=== PATIENT | male | born 1975 | race Caucasian/White ===

== ENCOUNTER 2017-02-08 14:47 | Emergency (ER) | payer BC, OTHER ==
--- NOTE | 2017-02-08 18:57 | UC ---
Víctor Hinojosa Aidan, scribed for Isadora Chandler MD on 02/08/17 at 1602 . Skin Complaint HPI - HPI Summary HPI Summary: 41 y/o male presents to the Urgent Care with a complaint of acute, constant, moderate left ear redness with associated itchiness that began 2 days ago. At 2000 2 days ago, his ear became mildly itchy. Over the course of the next day, it became progressively itchier. He then noticed some oozing discharge and applied hydrocortisone and washed the ear with Neutrogena soap. Associated symptoms include warmth and swelling in the left ear and swollen lymph nodes on the left side. He denies any dental pain. - History of Current Complaint Chief Complaint: UCSkin Time Seen by Provider: 02/08/17 15:41 Stated Complaint: EAR SKIN RASH Hx Obtained From: Patient Onset/Duration: Gradual Onset, Lasting Days, Still Present Skin Exposure Onset/Duration: Days Ago, Worse Since: - onset Timing: Constant Onset Severity: Moderate Current Severity: Moderate Pain Intensity: 0 - no pain mentioned Pain Scale Used: 0-10 Numeric Location: Ear (Left), Other - swelling in left lymph node too Character: Swelling, Pruritus, Redness Aggravating: Other - unknown Alleviating: Other - unknown Associated Signs & Symptoms: Positive: Rash - redness and itchiness on left ear , swelling in left lymph node Related History: Other: - possible exposure to poison dayami - Allergy/Home Medications Allergies/Adverse Reactions: Allergies Allergy/AdvReac Type Severity Reaction Status Date / Time No Known Allergies Allergy Verified 02/08/17 15:23 Review of Systems Constitutional: Negative Skin: Other - redness and itchiness to left ear with associated swelling Eyes: Negative ENT: Other - swollen left lymph node Respiratory: Negative Cardiovascular: Negative Gastrointestinal: Negative Genitourinary: Negative Motor: Negative Neurovascular: Negative Musculoskeletal: Negative Neurological: Negative Psychological: Negative All Other Systems Reviewed And Are Negative: Yes PMH/Surg Hx/FS Hx/Imm Hx - Surgical History Surgical History: Yes Surgery Procedure, Year, and Place: knee - Family History Known Family History: Positive: Hypertension - Social History Occupation: Employed Full-time Lives: Alone Alcohol Use: Occasionally Substance Use Type: None Smoking Status (MU): Never Smoked Tobacco Physical Exam Triage Information Reviewed: Yes Appearance: Well-Nourished Vital Signs: Initial Vital Signs Temp 100.1 F 02/08/17 15:19 Pulse 83 02/08/17 15:19 Resp 18 02/08/17 15:19 BP 130/83 02/08/17 15:19 Pulse Ox 97 02/08/17 15:19 Vital Signs Reviewed: Yes Eye Exam: Normal ENT Exam: Other - pinna is red, swollen, inflamed, irregular area of skin disruption, length 1.5cm and width of 1.3 cm, small amount of clear, yellow crusty drainage Neck exam: Other - Posterior auricular adenopathy and left submandibular Neck: Negative: No Lymphadenopathy - Posterior auricular adenopathy and left submandibular Respiratory Exam: Normal, Other - no dispnea, no tachypnea, normal respiratory rate Respiratory: Positive: Normal breath sounds Cardiovascular Exam: Normal, Other - good general skin color Cardiovascular: Positive: RRR, Brisk Capillary Refill Abdominal Exam: Normal Abdomen Description: Positive: Nontender, No Organomegaly, Soft Bowel Sounds: Positive: Present Musculoskeletal Exam: Normal Musculoskeletal: Positive: Strength Intact Neurological Exam: Normal, Other - normal, nonfocal, grossly intact Neurological: Positive: Alert Psychological Exam: Normal Psychological: Positive: Age Appropriate Behavior Skin Exam: Other - pinna is red, swollen, inflamed, irregular area of skin disruption, length 1.5cm and width of 1.3 cm, small amount of clear, yellow crusty drainage Course/Dx - Course Course Of Treatment: No new problems in CCC. Reviewed coa / d/c instructions. L ear dermatitis, likely allergic origen (consider insect bite?). Complicated by local cellulitis. See avs instructions. Questions answered to the best of my ability. Rx prednisone taper, topical mupirocin. otc antihistamine (d/w pt). - Diagnoses Provider Diagnoses: Allergic dermatitis. Local (ear tragus) cellulitis Discharge - Discharge Plan Condition: Stable Disposition: HOME Prescriptions: Mupirocin 2% OINT* [Bactroban 2 % Oint*] 1 applic TOPICAL BID #1 tube predniSONE TAB* [Deltasone TAB*] 10 mg PO DAILY #11 tab Patient Education Materials: Antihistamine (By mouth), Cellulitis (ED), Dermatitis (ED) Referrals: Ingris Busch, BINGO MANAGER [Primary Care Provider] - Additional Instructions: Avoid direct sun exposure. Avoid astringents. Over the counter antihistamine, per packaging instructions for the next 5 days ( and then as needed for itching). Seek medical attention for worse or new problems. The documentation as recorded by the Víctor laboy Aidan accurately reflects the service I personally performed and the decisions made by me, Isadora Chandler MD.
== END 2017-02-08 16:24 | disposition home or self-care (01) ==
LOC: UCEAST 14:47
DX: L23.9 Allergic contact dermatitis, unspecified cause (principal); H60.12 Cellulitis of left external ear
CPT/HCPCS: 99202; G0463

== ENCOUNTER 2018-06-16 10:18 | Emergency (ER) | payer BC ==
[2018-06-16] MEDS ORDERED: Ketorolac INJ* 60 MG/2 ML VIAL IM ONE (12:43)
[2018-06-16 12:52] VITALS: BP 143/91
--- NOTE | 2018-06-16 13:19 | RAD ---
HISTORY: possible FB under nail bed (distal) COMPARISONS: None VIEWS: 3 , Frontal, lateral, and oblique views of the first digit of the left hand FINDINGS: BONE DENSITY: Normal. BONES: There is no displaced fracture. JOINTS: There is no arthropathy. ALIGNMENT: There is no dislocation. SOFT TISSUES: Unremarkable. OTHER FINDINGS: There is no radiopaque foreign body. IMPRESSION: NO ACUTE OSSEOUS INJURY. IF SYMPTOMS PERSIST, RECOMMEND REPEAT IMAGING.
--- NOTE | 2018-06-16 13:27 | ED ---
Upper Extremity Pain - HPI Summary HPI Summary: [id number] patient here with left thumb nail injury over the weekend. 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 He had acute pain then and continues to have pain. He has some redness and swelling developing along the side of his fingernail which has him concerned about infection. He denies drainage, streaking, fever, chills. He has only taken one dose of ibuprofen last night to help him sleep which it did. Also soaking thumb in salt water. He denies numbness, tingling, weakness. Tetanus? - History of Current Complaint Chief Complaint: UCSkin Stated Complaint: INFECTED NAIL BED Time Seen by Provider: 06/16/18 12:26 Hx Obtained From: Patient - Allergies/Home Medications Allergies/Adverse Reactions: Allergies Allergy/AdvReac Type Severity Reaction Status Date / Time No Known Allergies Allergy Verified 06/16/18 10:45 Home Medications: Home Medications Ibuprofen/Diphenhydramine HCl [Ibuprofen Pm 200-25 mg] 1 cap PO 06/16/18 [ History] PMH/Surg Hx/FS Hx/Imm Hx Previously Healthy: Yes Endocrine/Hematology History: Denies: Autoimmune Disease - Surgical History Surgery Procedure, Year, and Place: knee Infectious Disease History: No Infectious Disease History: Denies: Traveled Outside the [place] in Last 30 Days - Family History Known Family History: Positive: Hypertension - Social History Alcohol Use: Occasionally Substance Use Type: Reports: None Smoking Status (MU): Never Smoked Tobacco Review of Systems Constitutional: Negative Negative: Fever, Chills Positive: no symptoms reported Musculoskeletal: Negative Skin: Other - erythema about affected nail Neurological: Negative Psychological: Normal All Other Systems Reviewed And Are Negative: Yes Physical Exam Triage Information Reviewed: Yes Vital Signs On Initial Exam: Initial Vitals Temp Pulse Resp BP Pulse Ox 97.2 F 73 18 133/93 100 06/16/18 10:41 06/16/18 10:41 06/16/18 10:41 06/16/18 10:41 06/16/18 10:41 Vital Signs Reviewed: Yes Appearance: Positive: Well-Appearing, No Pain Distress, Well-Nourished Skin: Positive: Warm, Skin Color Reflects Adequate Perfusion, Dry - mild erythema about the Lt thumb at junction between nail and nailbed at the end of the nail, centrally located -appears to have pinpoint bruising here but no ervin FB, no pustule - very mild focal edema and no streaking; nail bed completelt intact -no subungual hematoma Head/Face: Positive: Normal Head/Face Inspection Eyes: Positive: EOMI ENT: Positive: Hearing grossly normal Respiratory/Lung Sounds: Positive: Breath Sounds Present Cardiovascular: Positive: Pulses are Symmetrical in both Upper and Lower Extremities Musculoskeletal: Positive: Strength/ROM Intact, Pain @ - Lt thumb TTP Neurological: Positive: Normal, Sensory/Motor Intact, Alert, Oriented to Person Place, Time, CN Intact II-III Psychiatric: Positive: Anxious Diagnostics - Vital Signs Vital Signs Temp Pulse Resp BP Pulse Ox 06/16/18 12:50 97.4 F 61 16 143/91 99 06/16/18 10:41 97.2 F 73 18 133/93 100 - Laboratory Lab Statement: Any lab studies that have been ordered have been reviewed, and results considered in the medical decision making process. Course/Dx - Course Course Of Treatment: XR: no FB - Diagnoses Provider Diagnoses: Injury of left thumb Discharge - Sign-Out/Discharge Documenting (check all that apply): Patient Departure All imaging exams completed and their final reports reviewed: Yes - Discharge Plan Condition: Stable Disposition: HOME Prescriptions: Sulfamethox/Trimethoprim DS* [Bactrim DS 800/160 TAB*] 1 tab PO BID #20 tab Patient Education Materials: Paronychia (ED) Referrals: Ingris Busch, CANVAS CUTTER [Nurse Practitioner] - Additional Instructions: Rest, soak, elevate and take antibiotics as directed You may also take ibuprofen 600mg every 6 hours with food as needed for pain swelling Follow-up with PCP in 3-4 days for recheck - if worse in the meantime, go to ED - Billing Disposition and Condition Condition: STABLE Disposition: Home
[2018-06-16] MEDS ORDERED: Tetan/Diph/Pertus SYR(Tdap)* 0.5 ML SYR(BOOSTRIX) use SYR IM ONE (13:30)
--- NOTE | 2018-06-18 12:44 | UC ---
- Progress Note Progress Note: Culture with Citrobacter freundii - pt was placed on bactrim - this has moderate activity against C. Freundii. Will await final culture Discharge - Sign-Out/Discharge Documenting (check all that apply): Post-Discharge Follow Up All imaging exams completed and their final reports reviewed: Yes - Discharge Plan Condition: Stable Disposition: HOME Prescriptions: Sulfamethox/Trimethoprim DS* [Bactrim DS 800/160 TAB*] 1 tab PO BID #20 tab Patient Education Materials: Darron (ED) Referrals: Ingris Busch ACCOUNT MANAGER EDUCATION [Nurse Practitioner] - Additional Instructions: Rest, soak, elevate and take antibiotics as directed You may also take ibuprofen 600mg every 6 hours with food as needed for pain swelling Follow-up with PCP in 3-4 days for recheck - if worse in the meantime, go to ED - Billing Disposition and Condition Condition: STABLE Disposition: Home
--- NOTE | 2018-06-18 15:27 | UC ---
- Progress Note Progress Note: Culture final with sens to bactrim - no change Discharge - Sign-Out/Discharge Documenting (check all that apply): Post-Discharge Follow Up All imaging exams completed and their final reports reviewed: Yes - Discharge Plan Condition: Stable Disposition: HOME Prescriptions: Sulfamethox/Trimethoprim DS* [Bactrim DS 800/160 TAB*] 1 tab PO BID #20 tab Patient Education Materials: Darron (ED) Referrals: Ingris Busch, DIE ATTACHER [Nurse Practitioner] - Additional Instructions: Rest, soak, elevate and take antibiotics as directed You may also take ibuprofen 600mg every 6 hours with food as needed for pain swelling Follow-up with PCP in 3-4 days for recheck - if worse in the meantime, go to ED - Billing Disposition and Condition Condition: STABLE Disposition: Home
== END 2018-06-16 13:37 | disposition home or self-care (01) ==
LOC: UCEAST 10:18
DX: L03.012 Cellulitis of left finger (principal)
CPT/HCPCS: 87070; 87077; 87186; 87205; 90471; 90715; 96372; 99212; G0463; J1885

== ENCOUNTER 2019-05-30 12:46 | Emergency (ER) | payer BC ==
[2019-05-30 12:55] VITALS: BP 119/87
--- NOTE | 2019-05-30 13:31 | UC ---
Eye Complaint HPI - HPI Summary HPI Summary: Patient is a 43yo male presenting with sore throat, nasal congestion, and fever x4 days. Patient also notes redness and white purulent drainage from both eyes since yesterday. Notes thick pus that matted his eyes shit this morning. Notes some blurry vision yesterday. States the discharge has been collecting throughout today as well. Denies vision changes today. Denies pain. Denies headache. Patient does not wear contact lenses. - History of Current Complaint Chief Complaint: UCGeneralIllness Stated Complaint: ST/EYE COMP Severity Currently: Mild Pain Intensity: 4 Pain Scale Used: 0-10 Numeric - Allergies/Home Medications Allergies/Adverse Reactions: Allergies Allergy/AdvReac Type Severity Reaction Status Date / Time No Known Allergies Allergy Verified 05/30/19 12:55 PMH/Surg Hx/FS Hx/Imm Hx Previously Healthy: Yes - Surgical History Surgical History: Yes Surgery Procedure, Year, and Place: knee - Family History Known Family History: Positive: Hypertension, Non-Contributory - Social History Alcohol Use: Occasionally Substance Use Type: None Smoking Status (MU): Never Smoked Tobacco Review of Systems All Other Systems Reviewed And Are Negative: Yes Constitutional: Positive: Fever, Chills Skin: Positive: Negative Eyes: Positive: Blurred Vision, Drainage, Eye Redness. Negative: Photophobia ENT: Positive: Sore Throat, Nasal Discharge, Sinus Congestion. Negative: Ear Ache, Sinus Pain/Tenderness Respiratory: Positive: Negative. Negative: Shortness Of Breath, Cough Cardiovascular: Positive: Negative. Negative: Chest Pain Gastrointestinal: Positive: Negative. Negative: Abdominal Pain, Vomiting, Diarrhea, Nausea Musculoskeletal: Positive: Negative Neurological: Positive: Headache Physical Exam Triage Information Reviewed: Yes Appearance: Well-Appearing, No Pain Distress, Well-Nourished Vital Signs: Initial Vital Signs Temp 97 F 05/30/19 12:51 Pulse 85 05/30/19 12:51 Resp 16 05/30/19 12:51 BP 119/87 05/30/19 12:51 Pulse Ox 97 05/30/19 12:51 Eye Exam: Other - PERRLA Eyes: Positive: Conjunctiva Inflamed, Discharge - scant amount of white discharge noted in eyelid margins of both eyes.. Negative: Conjunctiva Clear ENT: Positive: Hearing grossly normal, Pharyngeal erythema, Nasal congestion, TMs normal, Hoarse voice, Uvula midline. Negative: Nasal drainage, Tonsillar swelling, Tonsillar exudate, Sinus tenderness Neck exam: Normal Neck: Positive: Supple, Nontender, No Lymphadenopathy Respiratory Exam: Normal Respiratory: Positive: Lungs clear, Normal breath sounds, No respiratory distress Cardiovascular Exam: Normal Cardiovascular: Positive: RRR Neurological: Positive: Alert Psychological: Positive: Age Appropriate Behavior Eye Complaint Course/Dx - Course Course Of Treatment: I prescribed polytrim antibiotic drops for bacterial conjunctivitis based on HPI and PE findings. Patient does not wear contact lenses. I educated him on the likely viral etiology of his upper respiratory symptoms and instructed him to continue OTC cough and cold medications including throat sprays and lozenges. He may also use ibuprofen for pain relief. Patient voiced understanding and agreed to the treatment plan. - Differential Dx/Diagnosis Provider Diagnosis: Upper respiratory infection, Bacterial conjunctivitis Discharge ED - Sign-Out/Discharge Documenting (check all that apply): Patient Departure All imaging exams completed and their final reports reviewed: No Studies - Discharge Plan Condition: Stable Disposition: HOME Prescriptions: Polymyx/Trimethoprim OPTH* [Polytrim OPHTH*] 1 drop BOTH EYES QID #1 btl Patient Education Materials: Conjunctivitis (ED) Forms: *Work Release Referrals: Natalia Perez MD [Primary Care Provider] - If Needed Additional Instructions: As discussed, use the antibiotic eye drops as prescribed for your conjunctivitis , or pink eye. You may continue to take over the counter cough and cold medications for your cold symptoms. You may use throat lozenges and sprays as directed for symptomatic relief. You may take ibuprofen as directed for pain relief. Get plenty of rest and fluids. Wash your hands often. Return or follow up with your primary care doctor if your symptoms worsen or do not resolve within 7 days Return or go to the ED if you notice fever, nausea, vomiting, or worsening changes in vision.. - Billing Disposition and Condition Condition: STABLE Disposition: Home - Attestation Statements Provider Attestation: I was available for consult. This patient was seen by the TAMRA. The patient was not presented to, seen by, or examined by me. Johnny Garcia MD
== END 2019-05-30 13:44 | disposition home or self-care (01) ==
LOC: UCEAST 12:46
DX: J06.9 Acute upper respiratory infection, unspecified (principal); H10.33 Unspecified acute conjunctivitis, bilateral
CPT/HCPCS: 87651; 99212; G0463